=== PATIENT | male | born 1955 | race Caucasian/White ===

== ENCOUNTER 2020-02-16 17:52 | Emergency (ER) | payer MEDICARE, OTHER, SELFPAY ==
[2020-02-16] VITALS (9 sets, daily range): BP systolic 108–191; BP diastolic 66–114; PULSE 56–71; RESP 16–23; TEMP 35.7; O2SAT 100
--- NOTE | 2020-02-16 18:45 | PC.NURSE ---
patient brought back to ED room 11 with c/o anxiety. see triage notes. resting on stretcher. alert. oriented. denies pain. unclear on patient's
--- NOTE | 2020-02-16 19:26 | ED.PSYCH ---
HPI - Psych General Chief Complaint: Psychiatric Symptoms Stated Complaint: headache Time Seen by Provider: 02/16/20 18:59 History of Present Illness HPI Narrative: History is mildly limited by psychiatric disorder. He reports dizziness upon standing for the past couple of weeks. SOme times happens when he moves his head too. He has been working to help his son build a house and frequently goes all day without eating or drinking. Related Data Home Medications Medication Instructions Recorded Confirmed amlodipine 2.5 mg PO DAILY 02/16/20 aspirin 81 mg PO DAILY 02/16/20 atorvastatin 10 mg PO DAILY 02/16/20 benztropine 0.5 mg PO BID 02/16/20 bupropion HCl 75 mg PO TID 02/16/20 citalopram 10 mg PO DAILY 02/16/20 clonidine 1 patch TRANSDERMAL WEEKLY 02/16/20 docusate sodium [Colace] 50 mg PO BID 02/16/20 enalapril maleate 2.5 mg PO BID 02/16/20 haloperidol [Haldol] 2 mg PO BID 02/16/20 psyllium [Metamucil] 1 packet PO TID 02/16/20 Allergies Allergy/AdvReac Type Severity Reaction Status Date / Time No Known Allergies Allergy Unverified 05/06/13 09:30 Review of Systems Review of Systems: All systems reviewed & are unremarkable except as noted in HPI and below Constitutional: Constitutional: Denies chills, Denies fever(s) and Denies weakness ENT: Reports dizziness Cardiovascular: Cardiovascular: Denies chest pain Respiratory: Respiratory: Denies dyspnea Gastrointestinal: Gastrointestinal: Denies abdominal pain and Denies nausea Neurologic: Reports dizziness, Denies syncope, Denies headache(s) and Denies weakness [facility] Past Medical History Medical History HTN (hypertension) Schizophrenia Social History Social History Gender identity (if verbalized by the patient): Male Exam Const: General: no acute distress and alert Nutritional Appearance: obese Orientation/consciousness: patient oriented x3 HENMT: Head: normal to inspection Ears: TM's normal bilaterally Eyes: Pupils: Equal, round and reactive pupils present EOM: EOMs intact bilaterally Resp: Effort & Inspection: normal respiratory effort Auscultation: clear to auscultation bilaterally Cardio: Rate: regular rate Rhythm: regular rhythm GI: GI Palp: Yes Soft to palpation and No Tenderness to palpation present (GI) Skin: General skin exam: normal color Rashes: no rashes Neuro: General: patient oriented x3, moves all extremities and CN's II-XI intact bilaterally Cranial nerves: Yes Nystagmus not present Speech: normal speech Extrem: General: normal to inspection and no edema Psych: Mental Status: mental status grossly normal Thought content: No Suicidality present and No Homicidality present Course Vital Signs Vital signs: Vital Signs Temperature 35.7 C L 02/16/20 18:26 Pulse Rate 63 02/16/20 18:26 Respiratory Rate 16 02/16/20 18:26 Blood Pressure 108/66 02/16/20 18:26 Pulse Oximetry 100 02/16/20 18:26 Temperature 35.7 C L 02/16/20 18:26 Pulse Rate 71 02/16/20 21:25 Respiratory Rate 21 H 02/16/20 21:16 Blood Pressure 131/114 H 02/16/20 21:25 Pulse Oximetry 100 02/16/20 18:26 MDM - Psych MDM Narrative Medical decision making narrative: History somewhat difficult. Most likely near syncopy due to dehydration. Feeling better after food and IV fluids. Medical Records Attestation: I reviewed the patient's medical records. Lab Data Attestation: I reviewed the patient's lab results. Result diagrams: 02/16/20 20:01 02/16/20 20:01 Labs: Lab Results 02/16/20 02/16/20 02/16/20 Range/Units 20:01 20:01 21:41 WBC 9.3 (4.5-10.0) K/mm3 RBC 5.02 (4.6-6.20) M/mm3 Hgb 16.5 (14.0-18.0) g/dL Hct 46.1 (42.0-52.0) % MCV 91.8 (80-100) fl MCH 32.9 (26-34) pg MCHC 35.8 (32-36) g/dl RDW 12.6 (11.5-14.5) % Plt Count
[2020-02-16 20:07] LABS: Basophils Absolute Auto 0.1 K/mm3 (0.0-0.1); Basophils Percent Auto 0.5 % (0.2-1.2); Eosinophils Absolute Auto 0.2 K/mm3 (0-0.3); Eosinophils Percent Auto 1.6 % (0-4.4); Hematocrit 46.1 % (42.0-52.0); Hemoglobin 16.5 g/dL (14.0-18.0); Immature Granulocyte Absolute 0.03 K/mm3 (0.00-0.031); Immature Granulocyte Percent A 0.3 % (0-0.5); Lymphocytes Absolute Auto 1.86 K/mm3 (0.9-3.2); Lymphocytes Percent Auto 20.1 % (18.3-44.2); Mean Corpuscular HGB Conc 35.8 g/dl (32-36); Mean Corpuscular Hemoglobin 32.9 pg (26-34); Mean Corpuscular Volume 91.8 fl (80-100); Mean Platelet Volume 10.2 fl (7.4-10.4); Monocytes Absolute Auto 0.8 K/mm3 (0.1-0.6); Monocytes Percent Auto 8.3 % (2.6-8.5); Neutrophils Absolute Auto 6.4 K/mm3 (1.3-6.7); Neutrophils Percent Auto 69.2 % (45.5-73.1); Platelet Count Result 173 k/mm3 (150-375); Red Blood Count 5.02 M/mm3 (4.6-6.20); Red Cell Distribution Width 12.6 % (11.5-14.5); White Blood Count 9.3 K/mm3 (4.5-10.0)
[2020-02-16 20:20] LABS: Alanine Aminotransferase 29 U/L (4-50); Albumin Level 4.2 g/dL (3.5-5.1); Alkaline Phosphatase 103 U/L (38-126); Anion Gap 6 mmol/L (8-16); Aspartate Amino Transferase 24 U/L (17-59); Bilirubin,Total 0.5 mg/dL (0.2-1.3); Blood Urea Nitrogen 23 mg/dL (9-20); Calcium 9.6 mg/dL (8.4-10.2); Carbon Dioxide 27 mmol/L (22-30); Chloride 106 mmol/L (98-107); Estimated CRCL calculation 48 ml/min; Estimated Glomerular Filt Rate 44; Glucose 71 mg/dL (75-110); Potassium 4.2 mmol/L (3.4-5.0); Sodium 139 mmol/L (137-145)
[2020-02-16] MEDS: SODIUM CHLORIDE 0.9% IV 1,000 ML 999 ML IV CONT (20:20)
[2020-02-16 21:49] LABS: Add Urine Microscopic? NO; Appearance Urine Clear (Clear); Bilirubin Urine Negative (Negative); Blood Urine Negative (Negative); Color Urine Yellow (Yellow); Glucose Urine UA Negative (Negative); Ketones Urine Negative (Negative); Leukocyte Esterase Ur Negative LEU/UL (Negative); Nitrate Urine Negative (Negative); Protein Urine Negative (Negative); Specific Grav Ur 1.012 (1.001-1.035); Urobilinogen Urine Negative mg/dL (<2.0)
[2020-02-16 22:05] LABS: Amphetamine Screen Urine Negative (Negative); Barbiturate Screen Urine Negative (Negative); Benzodiazepines Screen Urine Negative (Negative); Cannabinoid Screen Urine Negative (Negative); Cocaine Screen Urine Negative (Negative); Methadone Screen Urine Negative (Negative); Opiate Screen Urine Negative (Negative); Phencyclidine Screen Urine Negative (Negative)
--- NOTE | 2020-02-26 11:45 | PC.NURSE ---
LATE ENTRY This note is being entered to document information to the patient's record. The following information was omitted on [02/16/20], by [Angelina Schaffer RN]. NS stop time was 2119.
== END 2020-02-16 22:44 | disposition home or self-care (01) ==
PROVIDERS: Emergency Provider Emergency Medicine; PCP Internal Medicine
DX: E86.0 Dehydration (principal); I10 Essential (primary) hypertension; F20.9 Schizophrenia, unspecified; Z79.82 Long term (current) use of aspirin; Z79.899 Other long term (current) drug therapy
CPT/HCPCS: 36415; 80053; 80307; 81003; 85025; 96360; 99283; J7030